=== PATIENT | female | born 1940 | race Caucasian/White ===

== ENCOUNTER 2018-07-06 03:17 | Emergency (ER) | payer MEDICARE, BC ==
[~2018-07-06] VITALS: Ht 160 cm; Wt 51.7 kg
[2018-07-06] MEDS ORDERED: IV NORMAL SALINE 1000ML BAG 1,000 ML IV ONE (03:45)
[2018-07-06 04:06] LABS: BASO # 0.1 x10^3/uL (0.0-0.2); BASO % 1 % (0-3); EOS # 0.4 x10^3/uL (0.0-0.7); EOS % 7 % (0-3); HEMOGLOBIN 14.7 g/dL (12.0-15.5); LYMPH # 2.1 x10^3/uL (1.0-4.8); LYMPH % 38 % (24-48); MEAN CORPUSCULAR HEMOGLOBIN 30 pg (25-35); MEAN CORPUSCULAR HGB CONC 34 g/dL (31-37); MEAN CORPUSCULAR VOLUME 87 fL (79-100); MONO # 0.7 x10^3/uL (0.0-1.1); MONO % 12 % (0-9); NEUT # 2.3 x10^3uL (1.8-7.7); NEUT % 42 % (31-73); PLATELET COUNT 226 x10^3/uL (140-400); RED BLOOD COUNT 4.96 x10^6/uL (3.50-5.40); RED CELL DISTRIBUTION WIDTH 14.8 % (11.5-14.5); WHITE BLOOD COUNT 5.5 x10^3/uL (4.0-11.0)
[2018-07-06 04:12] LABS: CALCIUM 9.3 mg/dL (8.5-10.1); CREATININE 1.5 mg/dL (0.6-1.0); GFR 33.9; POTASSIUM 3.8 mmol/L (3.5-5.1)
[2018-07-06 04:18] LABS: ALBUMIN 3.5 g/dL (3.4-5.0); ALBUMIN/GLOBULIN RATIO 0.9 (1.0-1.7); MAGNESIUM 2.1 mg/dL (1.8-2.4); TOTAL BILIRUBIN 0.4 mg/dL (0.2-1.0); TOTAL PROTEIN 7.3 g/dL (6.4-8.2)
--- NOTE | 2018-07-06 04:18 | PHYS DOC ---
Past Medical History Past Medical History: High Cholesterol, Hypertension, Renal Disease Additional Past Medical Histor: RENAL/LE STENTS, 2 AORTIC ANEURYSMS, Peripheral Artery Disease Past Surgical History: Hysterectomy Additional Past Surgical Histo: BACK SX X2 Smoking: Less than 1pk/day Additional Information: 10/17 PPD Alcohol Use: Rarely Drug Use: None Adult General Chief Complaint Chief Complaint: LOWER EXT PAIN HPI HPI Patient is a 77 year old female who presents with lower left extremity weakness. She states she woke up to go to the bathroom in the middle of the night and was unable to bear weight on her left leg. At the time, she was unable to pick up attendant her leg off of the ground. She states that her leg still feels weak on the back of her leg from her knee to her ankle. She also notes decreased sensation in that region. She endorses back pain, which has been an ongoing issue due to her spinal stenosis. She notes that she has a history of extensive nerve damage in both of her legs and she occasionally has paresthesias in both lower extremities. She states she has a stent placed in each other legs as a result of her peripheral artery disease. She denies any radiation, dizziness, visual changes, fevers, chills, abdominal pain, nausea, vomiting, diarrhea, constipation, or bowel/bladder function. She notes that her sensation is getting better and that while she still feels weak, she is starting to gain some strength and is able to walk with assistance. Review of Systems Review of Systems Constitutional: Denies fever or chills Eyes: Denies change in visual acuity, redness, or eye pain HENT: Denies nasal congestion or sore throat Respiratory: Denies cough or shortness of breath Cardiovascular: Denies chest pain or heart palpitations GI: Denies abdominal pain, nausea, vomiting, diarrhea or constipation : Denies dysuria or hematuria Musculoskeletal: Notes back pain; Denies joint pain Integument: Denies rash or skin lesions Neurologic: Notes left lower extremity weakness, numbness, and decreased movement; Denies headache Complete systems were reviewed and found to be within normal limits, except as documented in this note. Family History Family History Noncontributory Current Medications Current Medications Current Medications Medications (Trade) Dose Ordered Sig/Angelia Start Time Stop Time Status Last Admin Dose Admin Sodium Chloride 1,000 ml @ 1,000 mls/hr 1X ONCE 07/06/18 03:45 07/06/18 04:44 DC 07/06/18 04:17 1,000 MLS/HR Coreg, lisinopril, amplodipine, simvastatin Allergies Allergies Allergies Coded Allergies Type Severity Reaction Last Updated Verified Unable to Assess 07/06/18 No Physical Exam Physical Exam Constitutional: Well developed, well nourished, no acute distress, non-toxic appearance HENT: Normocephalic, atraumatic, oropharynx moist, no oral exudates, nose normal Eyes: Conjunctiva normal, no discharge Neck: Normal range of motion, no tenderness, supple Cardiovascular: Heart rate regular rhythm, no murmur Lungs & Thorax: Bilateral breath sounds clear to auscultation Abdomen: Soft, nontender Skin: Warm, dry, no erythema, no rash Back: No tenderness, no CVA tenderness Extremities: No tenderness, ROM intact, no edema Neurologic: Alert and oriented X 3, weakness in left lower extremity, decreased sensation in left lower extremity Psychologic: Affect normal, judgement normal, mood normal Current Patient Data Vital Signs Vital Signs Date Time Temp Pulse Resp B/P (MAP) Pulse Ox O2 Delivery O2 Flow Rate FiO2 07/06/18 03:32 97.9 73 18 170/84 (112) 96 Room Air 97.9 Lab Values Laboratory Tests Test 07/06/18 03:53 White Blood Count 5.5 x10^3/uL (4.0-11.0) Red Blood Count 4.96 x10^6/uL (3.50-5.40) Hemoglobin 14.7 g/dL (12.0-15.5) Hematocrit 43.0 % (36.0-47.0) Mean Corpuscular Volume 87 fL (79-100) Mean Corpuscular Hemoglobin 30 pg (25-35) Mean Corpuscular Hemoglobin Concent 34 g/dL (31-37) Red Cell Distribution Width 14.8 % (11.5-14.5) H Platelet Count 226 x10^3/uL (140-400) Neutrophils (%) (Auto) 42 % (31-73) Lymphocytes (%) (Auto) 38 % (24-48) Monocytes (%) (Auto) 12 % (0-9) H Eosinophils (%) (Auto) 7 % (0-3) H Basophils (%) (Auto) 1 % (0-3) Neutrophils # (Auto) 2.3 x10^3uL (1.8-7.7) Lymphocytes # (Auto) 2.1 x10^3/uL (1.0-4.8) Monocytes # (Auto) 0.7 x10^3/uL (0.0-1.1) Eosinophils # (Auto) 0.4 x10^3/uL (0.0-0.7) Basophils # (Auto) 0.1 x10^3/uL (0.0-0.2) Prothrombin Time 13.3 SEC (11.7-14.0) Prothrombin Time INR 1.1 (0.8-1.1) PTT 34 SEC (24-38) Sodium Level 139 mmol/L (136-145) Potassium Level 3.8 mmol/L (3.5-5.1) Chloride Level 102 mmol/L (98-107) Carbon Dioxide Level 30 mmol/L (21-32) Anion Gap 7 (6-14) Blood Urea Nitrogen 19 mg/dL (7-20) Creatinine 1.5 mg/dL (0.6-1.0) H Estimated GFR (Cockcroft-Gault) 33.9 BUN/Creatinine Ratio 13 (6-20) Glucose Level 129 mg/dL (70-99) H Calcium Level 9.3 mg/dL (8.5-10.1) Magnesium Level 2.1 mg/dL (1.8-2.4) Total Bilirubin 0.4 mg/dL (0.2-1.0) Aspartate Amino Transferase (AST) 12 U/L (15-37) L Alanine Aminotransferase (ALT) 13 U/L (14-59) L Alkaline Phosphatase 60 U/L (46-116) Creatine Kinase 58 U/L (26-192) Troponin I Quantitative < 0.017 ng/mL (0.000-0.055) Total Protein 7.3 g/dL (6.4-8.2) Albumin 3.5 g/dL (3.4-5.0) Albumin/Globulin Ratio 0.9 (1.0-1.7) L Laboratory Tests 07/06/18 03:53 Laboratory Tests 07/06/18 03:53 EKG EKG [] Radiology/Procedures Radiology/Procedures Lower extremity US: No evidence of hemodynamically significant stenosis. Moderate atherosclerotic calcifications identified throughout the left lower extremity arterial system. CT head without contrast: No acute intracranial findings. Course & Med Decision Making Course & Med Decision Making Patient is a 77 year old female with a PMH of peripheral artery disease, hypertension, hypercholesterolemia, and 2 aortic aneurysms who presents with left lower extremity weakness. Pertinent labs and imaging studies were obtained and reviewed (see chart for details). A lower extremity US indicated no evidence of hemodynamically significant stenosis; however, it showed moderate atherosclerotic calcifications identified throughout the left lower extremity arterial system. Patient received 1 L normal saline. Her creatinine was slightly elevated, but this is her baseline as she has chronic kidney disease. A CT scan of the head without contrast was obtained and showed no acute intracranial findings. Etiology secondary to peripheral artery disease vs. potential minor transient ischemic attack. Discussed admission for further evaluation in the event that the weakness was due to possible transient ischemic attack vs. discharge and followup with her PCP. Patient elected to be discharged to followup with her PCP as well as her tie knitter helper. Patient stable for discharge with outpatient follow-up with PCP and tie knitter helper. Discussed findings and plan with patient and daughter, who acknowledge understanding and agreement. Dragon Disclaimer Dragon Disclaimer This electronic medical record was generated, in whole or in part, using a voice recognition dictation system. Departure Departure Impression: Primary Impression: Left leg pain Disposition: 01 HOME, SELF-CARE Condition: STABLE Referrals: UNKNOWN PCP NAME (PCP) Patient Instructions: Transient Ischemic Attack, [id number], Weakness, Easy- to-Read Additional Instructions: It is unclear if your symptoms are related to your chronic vascular issues or from a more central issue such as a Transient Ischemic Attack (TIA) or "Mini stroke". Currently your symptoms have resolved and you have elected to not be admitted for further evaluation, but rather to follow-up with your family physician regarding this episode. Please return promptly for any return of symptoms or for any other concern. RYLAN SINGH DO Jul 06, 2018 04:18
[2018-07-06 04:27] LABS: PROTHROMBIN TIME PATIENT 13.3 SEC (11.7-14.0)
--- NOTE | 2018-07-06 04:39 | RAD ---
Examination: Ultrasound left lower extremity arterial duplex HISTORY: History of left leg numbness, peripheral arterial disease COMPARISON: None available TECHNIQUE: Grayscale, color Doppler 2-D, spectral waveforms of the left lower extremity arterial system were performed FINDINGS: Moderate atherosclerotic plaque identified throughout the left lower extremity arterial system.There is biphasic waveforms identified throughout the left lower extremity. No evidence of focal elevated velocity identified. IMPRESSION: 1. No evidence of hemodynamically significant stenosis. 2. Moderate atherosclerotic calcifications identified throughout the left lower extremity arterial system. Electronically signed by: Bret Andino MD (07/06/2018 4:35 AM) [id number]
--- NOTE | 2018-07-06 05:38 | RAD ---
CT HEAD INDICATION: Left lower extremity weakness COMPARISON: None Available. TECHNIQUE: 5 mm contiguous axial images were obtained from the skull base to the vertex. FINDINGS: Mild bilateral periventricular white matter hypodensities likely chronic small vessel ischemic disease. Small old lacunar infarct left basal ganglia. No evidence of acute intracranial hemorrhage. No extra-axial fluid collections. No mass effect or midline shift. Ventricular size is appropriate. Basal cisterns are patent. No fractures identified.Moore-white differentiation is preserved.Globes and orbits are within normal limits. Small mucous retention cyst or polyp in the right maxillary sinus. IMPRESSION: No acute intracranial findings. Electronically signed by: Bret Andino MD (07/06/2018 5:34 AM) [id number]
[2018-07-06 05:47] VITALS: BP 141/85
== END 2018-07-06 06:00 | disposition home or self-care (01) ==
LOC: ER 03:17
DX: M79.605 Pain in left leg (principal); R53.1 Weakness; E78.00 Pure hypercholesterolemia, unspecified; N28.9 Disorder of kidney and ureter, unspecified; I10 Essential (primary) hypertension; F17.200 Nicotine dependence, unspecified, uncomplicated; I73.9 Peripheral vascular disease, unspecified; Z90.710 Acquired absence of both cervix and uterus
CPT/HCPCS: 36415; 70450; 80053; 82550; 83735; 84484; 85025; 85610; 85730; 93923; 99285; J7030